=== PATIENT | male | born 1990 | race Caucasian/White ===

== ENCOUNTER 2016-11-23 15:06 | Emergency (ER) | payer SELFPAY ==
[~2016-11-23 15:06] MED LIST: ANAPROX DS550 MG PO; CATAFLAM50 MG PO; DAYPRO600 M1 PO; NAPROSYN500 MG PO; NORFLEX100 MG PO; OMEPRAZOLE20 M1 PO; ROBAXIN750 MG PO; ULTRAM50 MG PO; VIBRA-TAB100 MG PO; VIBRAMYCIN100 MG PO; ZOFRAN4 MG PO
[2016-11-23] MEDS ORDERED: Motrin,Rufen800 MG PO (16:36)
== END 2016-11-23 16:39 | disposition home or self-care (01) ==
LOC: ED 15:06
DX: M25.561 Pain in right knee (principal); Z88.6 Allergy status to analgesic agent; X58.XXXA Exposure to other specified factors, initial encounter; Y93.89 Activity, other specified; Y92.9 Unspecified place or not applicable; Y99.9 Unspecified external cause status

== ENCOUNTER → 2021-04-08 | Outpatient (CLI) | payer OTHER ==
[~2021-04-08] MED LIST changes: +Motrin,Rufen800 MG PO
== END | disposition home or self-care (01) ==
LOC: RESCLI 10:57
PROVIDERS: ATTEND Internal Medicine
DX: J01.10 Acute frontal sinusitis, unspecified (principal); J30.2 Other seasonal allergic rhinitis; Z98.890 Other specified postprocedural states; Z88.8 Allergy status to other drugs, medicaments and biological substances

== ENCOUNTER → 2022-03-02 | Outpatient (CLI) | payer OTHER | END | disposition home or self-care (01) | LOC: ORTHO 02:24 | PROVIDERS: ATTEND Orthopaedic Surgery | DX: M25.512 Pain in left shoulder (principal) ==

== ENCOUNTER → 2023-12-21 | Outpatient (CLI) | payer OTHER | END | disposition home or self-care (01) | LOC: RAD 09:56 | PROVIDERS: ATTEND Internal Medicine | DX: M43.8X6 Other specified deforming dorsopathies, lumbar region (principal); I10 Essential (primary) hypertension ==

== ENCOUNTER → 2024-07-26 | Outpatient (CLI) | payer OTHER | END | disposition home or self-care (01) | LOC: RAD 16:47 | PROVIDERS: ATTEND Podiatrist Foot & Ankle Surgery | DX: M21.6X2 Other acquired deformities of left foot (principal); M76.62 Achilles tendinitis, left leg; M77.32 Calcaneal spur, left foot ==